=== PATIENT | female | born 1935 | race Caucasian/White ===

== ENCOUNTER 2017-05-13 09:30 | Emergency (ER) | payer OTHER ==
[2017-05-13 09:44] VITALS: RESP 16; TEMP 98.1
--- NOTE | 2017-05-13 10:03 | EDPHY ---
H & P Time Seen by Provider: 05/13/17 09:37 HPI/ROS: This patient slipped on ice to at her son's home-sidewalk last night landing on outstretched right hand with injury to her right wrist with immediate severe pain to the distal radius. She was watching her grandchildren's at that time and applied ice, took ibuprofen and applied a Velcro splint that she had from a prior wrist sprain if years ago. After ibuprofen the pain diminishes to moderate intensity. She had another dose of ibuprofen this morning prior to arrival in currently has moderate pain is worse with movement of the wrist. No other exacerbating or alleviating factors. ROS: Neuro: No numbness tingling or other complaints. She did not strike her head and does not have a headache. Musculoskeletal: No neck back or other extremity injuries. Integumentary: No lacerations or abrasions. 5 point ROS is otherwise negative. Past Medical/Surgical History: Otherwise healthy Smoking Status: Never smoked Physical Exam: Physical Exam Vital signs are normal. General: No acute distress HEENT: Atraumatic. Eyes: Pupils equal and react to light. Extraocular motions are intact. Lungs: No respiratory distress. Cardiac: Brisk capillary refill is intact throughout. Pulses are 2+ and symmetric in the affected extremity. Skin: No rash or pallor. Extremities-atraumatic normal except for right wrist Right wrist: Patient has swelling and tenderness to the distal radius with associated ecchymosis and the step deformity to the dorsum of the radius. No ulnar styloid tenderness. Neuro: Alert with no sensorimotor deficits in the affected extremity. Initial differential diagnosis: Distal radius fracture, scaphoid fracture, wrist sprain, traumatic hematoma Constitutional: Initial Vital Signs Temperature (C) 36.7 C 05/13/17 09:41 Heart Rate 79 05/13/17 09:41 Respiratory Rate 16 05/13/17 09:41 Blood Pressure 128/76 H 05/13/17 09:41 O2 Sat (%) 94 05/13/17 09:41 O2 Delivery Mode Room Air Allergies/Adverse Reactions: No Known Allergies Allergy (Unverified 10/25/11 22:08) Home Medications: Medication Instructions Recorded Fluticasone/Salmeterol [Advair 1 each IH 10/25/11 250-50 Diskus] MDM/Departure - MDM Imaging Results: Imaging Impressions Wrist X-Ray 05/13/17 09:41 Impression: 1. Acute minimally impacted and angulated intra-articular distal radius fracture. 2. Scapholunate ligament laxity versus tear. Imaging: I viewed and interpreted images myself ED Course/Re-evaluation: We placed a call to Dr. Chavira's office, the patient's orthopedic physician who treated her prior orthopedic injury. I discussed the patient's radiographic findings with her-Colles fracture mildly impacted with intra-articular component. SPLINT: Patient is placed in Orthoglass sugar-tong splint by our tech with my supervision and she is neurovascularly intact post splint application. I discussed the case with Dr. Chavira, her orthopedic physician who will see her in his office tomorrow for further evaluation tx. Patient is provided with a disc copy of her wrist radiographs bring to her orthopedic physician Discussion: Patient with mildly angulated and impacted Colles fracture with intra-articular component possible scapholunate ligament injury, neurovascularly intact. No evidence of other significant injuries. She will again follow up with Dr. byers understands need to return emergency department should she develop any significant worsening of her symptoms despite the treatment plan. - Depart Disposition: Home, Routine, Self-Care Clinical Impression: Colles' fracture Qualifiers: Encounter type: initial encounter Fracture type: closed Laterality: right Qualified Code(s): S52.531A - Colles' fracture of right radius, initial encounter for closed fracture Condition: Good Instructions: Wrist Fracture in Adults (ED) Additional Instructions: Diagnosis: Colles fracture of wrist Plan: Ibuprofen and Tylenol for pain control as needed Keep splint on at all times Sling when your up and about Elevate the wrist when you are able Follow up with Dr. Chavira or Dr. Kaur this week for further evaluation and treatment plan. Referrals: Sukhwinder Chavira MD [Medical Doctor] - As per Instructions Tereso Kaur MD [Medical Doctor] - As per Instructions
[2017-05-13 11:13] VITALS: BP 122/72; PULSE 84; O2SAT 96
== END 2017-05-13 11:13 | disposition home or self-care (01) ==
LOC: CED 09:30
DX: S52.531A Colles' fracture of right radius, initial encounter for closed fracture (principal); W00.0XXA Fall on same level due to ice and snow, initial encounter; Y92.480 Sidewalk as the place of occurrence of the external cause
CPT/HCPCS: 73110-PO

== ENCOUNTER 2017-05-27 10:37 | Emergency (ER) | payer OTHER ==
[2017-05-27 10:57] VITALS: RESP 18; TEMP 98.1; O2SAT 97
--- NOTE | 2017-05-27 11:14 | EDPHY ---
H & P Time Seen by Provider: 05/27/17 11:11 HPI/ROS: CHIEF COMPLAINT: Rib pain HISTORY OF PRESENT ILLNESS: Patient is an 82-year-old female who presents emergency department with left anterior rib pain. Patient states she fell 2 weeks ago breaking her right wrist. A few days later she was working at her washing machine and had difficulty getting some the close out. She leaned up onto the edge of the washing machine and felt a sharp pain in her left anterior rib. Since that time has been worse with movement. It is worse when she takes a deep breath. She has had no shortness of breath. No cough. No fever. No leg pain or swelling. No lightheadedness or dizziness. No other complaints. REVIEW OF SYSTEMS: My complete review of systems is negative except as mentioned in the HPI. Past Medical/Surgical History: Includes asthma Past surgical history: Mastectomy Social history: Patient does not smoke Smoking Status: Never smoked Physical Exam: Vitals noted GENERAL: Well-appearing, in no acute distress, alert. HEENT: Eyes normal to inspection, normal pharynx, no signs of dehydration. NECK: [No thyromegaly, no lymphadenopathy, supple. RESPIRATORY: Clear to auscultation bilaterally, no rales, rhonchi or wheezing. Chest wall: Patient's chest wall appears normal. Her left anterior chest wall has mild tenderness palpation with no deformity or crepitus. CVS: Regular rate and rhythm, no rubs, murmurs, or gallops. ABDOMEN: Soft, nontender, nondistended, no organomegaly. BACK: Normal to inspection, no CVA tenderness. SKIN: Normal color, no rash, warm, dry. No pallor. EXTREMITIES: No pedal edema, no calf tenderness, no Homans sign or cords, no joint swelling. Patient has a cast on her right hand. This appears intact. NEURO/PSYCH: Alert and oriented x3, normal mood and affect, normal motor sensory exam. Constitutional: Initial Vital Signs Temperature (C) 36.7 C 05/27/17 10:54 Heart Rate 79 05/27/17 10:54 Respiratory Rate 18 05/27/17 10:54 Blood Pressure 160/84 H 05/27/17 10:54 O2 Sat (%) 97 05/27/17 10:54 O2 Delivery Mode Room Air Allergies/Adverse Reactions: No Known Allergies Allergy (Verified 05/27/17 10:57) Home Medications: Medication Instructions Recorded Fluticasone/Salmeterol [Advair 1 each IH 10/25/11 250-50 Diskus] Medical Decision Making ED Course/Re-evaluation: In the emergency department I discussed possible etiologies with the patient. I answered all her questions. A chest x-ray was ordered. Chest x-ray: No acute disease noted. I discussed results with the patient. I answered all her questions. She is given warnings prior to leaving. Differential Diagnosis: My differential includes but is not limited to rib contusion, rib fracture, musculoskeletal strain, pleurisy, pneumonia, bronchitis. I doubt ACS or acute MD. I doubt pulmonary embolus, dissection or aneurysm. Departure - Departure Disposition: Home, Routine, Self-Care Clinical Impression: Chest wall contusion Qualifiers: Encounter type: initial encounter Laterality: left Qualified Code(s): S20.212A - Contusion of left front wall of thorax, initial encounter Condition: Good Instructions: Chest Wall Pain (ED) Additional Instructions: Return with increasing pain, shortness of breath, fever, chills or any other concerns. Referrals: Jules Summers MD [Primary Care Provider] - 3-4 days, if not improved
[2017-05-27 12:01] VITALS: BP 160/80; PULSE 80
== END 2017-05-27 11:58 | disposition home or self-care (01) ==
LOC: CED 10:37
DX: S20.212A Contusion of left front wall of thorax, initial encounter (principal); J45.909 Unspecified asthma, uncomplicated; W19.XXXA Unspecified fall, initial encounter
CPT/HCPCS: 71046-PO